=== PATIENT | female | born 2000 | race Caucasian/White ===

== ENCOUNTER 2019-07-30 12:00 | Outpatient (CLI) | payer BC ==
[~2019-07-30] VITALS: Ht 167.6 cm; Wt 90.0 kg
[2019-07-30] MEDS ORDERED: KARIVA 28 DAY1 EACH PO (14:04)
[2019-07-30 14:10] VITALS: BP 111/63; PULSE 82; TEMP 98.1
--- NOTE | 2019-07-30 14:30 | NUR ---
Report received from Arleen reina.
== END 2019-07-30 15:16 | disposition home or self-care (01) ==
LOC: EUO 12:00
DX: J03.90 Acute tonsillitis, unspecified (principal)
CPT/HCPCS: J1100; J2270; J2405; J7120